=== PATIENT | male | born 1995 | race Caucasian/White ===

== ENCOUNTER 2016-12-18 16:42 | Observation (INO) | payer BC ==
[~2016-12-18] VITALS: Ht 177.8 cm; Wt 111.4 kg
[2016-12-18 17:14] LABS: HEMATOCRIT 44.8 % (38.0-50.0); MCH 29.6 PG (29.0-34.0); MCHC 33.9 G/DL (30.0-36.0); MCV 87.2 FL (86-99); MEAN PLAT.VOLUME 9.8 uM^3 (9.0-12.4); PLATELET COUNT 202 K/uL (156-360); RBC DIS.WIDTH-CV 12.4 % (11.8-14.6); RBC DIS.WIDTH-SD 39.7 % (39-53); RED BLOOD COUNT 5.14 M/uL (4.00-5.50)
[2016-12-18 17:25] LABS: CHLORIDE 105 mEq/L (99-109); POTASSIUM 4.3 mEq/L (3.7-5.4); SODIUM 142 mEq/L (136-147)
[2016-12-18 17:28] LABS: GLUCOSE 100 mg/dL (70-99)
[2016-12-18 17:29] LABS: ADD MIUA? NO; BILIRUBIN NEGATIVE; BLOOD NEGATIVE; COLOR YELLOW ((YELLOW)); GLUCOSE (STRIP) NEGATIVE; KETONES NEGATIVE; LEUKOCYTES NEGATIVE; NITRITE NEGATIVE; PROTEIN (STRIP) NEGATIVE; SPECIFIC GRAVITY 1.016 (1.000-1.030); UCUL ADDED? NO
[2016-12-18 17:29] LABS: ANION GAP 15 MEQ/L (2-14); TOTAL BILIRUBIN 1.7 mg/dL (0.0-1.0)
[2016-12-18 17:31] LABS: ALKALINE PHOSPHATASE 46 IU/L (3-129); GFR ESTIMATE (CALCULATED) > 59 mL/min/
[2016-12-18 17:32] LABS: UREA NITROGEN (BUN) 13 mg/dL (9-23)
[2016-12-18 18:32] LABS: LIPASE 10 U/L (1.0-51.0)
[2016-12-18] MEDS ORDERED: VIRTUSSIN AC L118 ML PO (19:00)
[2016-12-18] MEDS ORDERED: PERCOCET 5/31 TABLET PO (23:08)
[2016-12-18] MEDS ORDERED: COLACE100 MG PO (23:08)
[2016-12-19 00:23] VITALS: BP 126/71
[2016-12-19 04:37] VITALS: BP 116/71
[2016-12-19 07:40] VITALS: BP 119/67
[2016-12-19 11:30] VITALS: BP 116/70
== END 2016-12-19 11:58 | disposition home or self-care (01) ==
LOC: EME 16:42 → 2EAST 20:27 → EDOF 20:27 → ENRESERV 20:30 → EDOF 23:00 → 2EAST 12-19 00:21
PROVIDERS: Nurse Practitioner Family
PROC: 0DTJ4ZZ Resection of Appendix, Percutaneous Endoscopic Approach (ICD-10-PCS; principal; 2016-12-18)
DX: K35.80 Unspecified acute appendicitis (principal); Z82.49 Family history of ischemic heart disease and other diseases of the circulatory system; F17.210 Nicotine dependence, cigarettes, uncomplicated; F12.90 Cannabis use, unspecified, uncomplicated; Z72.89 Other problems related to lifestyle
CPT/HCPCS: 71020; 74177; 80053; 81003; 83690; 85027; 93005; 94760; 94799; 99281; 99285; G0378; J0131; J0295; J1100; J1170; J1885; J2175; J2250; J2405; J2710; J3010; J3480; J7030; J7050